=== PATIENT | male | born 1990 ===

== ENCOUNTER 2017-05-07 10:43 | Emergency (ER) | payer OTHER ==
[~2017-05-07] VITALS: Ht 177.8 cm; Wt 70.3 kg
[2017-05-07] MEDS ORDERED: ZANTAC150 MG PO (13:17)
[2017-05-07] MEDS ORDERED: LEVSIN/SL0.125 MG PO (13:17)
[2017-05-07] MEDS ORDERED: ACIDOPHILUS1 EAC3 PO (13:17)
== END 2017-05-07 14:33 | disposition home or self-care (01) ==
LOC: ER 10:43
DX: K29.00 Acute gastritis without bleeding (principal)

== ENCOUNTER 2017-12-15 10:30 | Emergency (ER) | payer OTHER ==
[~2017-12-15] VITALS: Ht 180.3 cm; Wt 72.6 kg
[~2017-12-15 10:30] MED LIST: ACIDOPHILUS1 EAC3 PO; LEVSIN/SL0.125 MG PO; ZANTAC150 MG PO
== END 2017-12-15 14:05 | disposition home or self-care (01) ==
LOC: ER 10:30
DX: S80.02XA Contusion of left knee, initial encounter (principal); W18.39XA Other fall on same level, initial encounter; Y93.68 Activity, volleyball (beach) (court); Y92.89 Other specified places as the place of occurrence of the external cause; Y99.8 Other external cause status